=== PATIENT | male | born 1960 | race Caucasian/White ===

== ENCOUNTER 2018-01-08 00:58 | Day surgery (SDC) | payer OTHER ==
[~2018-01-08] VITALS: Ht 185.4 cm; Wt 101.2 kg
[~2018-01-08 00:58] MED LIST: CEP500 PO; FENO145T36 PO; GLIP-154 PO; IBU200 PO; LISI-362 PO; METO100T20 PO; OMEP-137 PO; PER PO; RAN150 PO; ROSU20TA23 PO; TRAM-420 PO
[2018-01-08 08:11] VITALS: BP 165/97
[2018-01-08] MEDS ORDERED: LIDOCAINE/SOD BICARB 8.4% SYR ID ONE (08:30)
[2018-01-08] MEDS ORDERED: NORMOSOL R SOLN(*) 1000 ML BAG 1,000 ML IV PRN (08:30)
[2018-01-08 09:57] VITALS: BP 113/69
[2018-01-08 10:00] VITALS: BP 110/68
[2018-01-08 10:31] VITALS: BP 145/87
[2018-01-08 10:32] VITALS: BP 147/93
== END 2018-01-08 10:50 | disposition home or self-care (01) ==
LOC: OR 00:58
PROVIDERS: ATTEND Family Medicine
DX: Z12.11 Encounter for screening for malignant neoplasm of colon (principal); K63.5 Polyp of colon; K57.30 Diverticulosis of large intestine without perforation or abscess without bleeding; I10 Essential (primary) hypertension; E78.5 Hyperlipidemia, unspecified; K21.9 Gastro-esophageal reflux disease without esophagitis; F17.220 Nicotine dependence, chewing tobacco, uncomplicated; Z80.0 Family history of malignant neoplasm of digestive organs
CPT/HCPCS: 88305